=== PATIENT | female | born 1945 ===

== ENCOUNTER 2022-06-19 05:45 | Day surgery (SDC) | payer OTHER ==
[~2022-06-19] VITALS: Ht 152.4 cm; Wt 48.1 kg
[~2022-06-19 05:45] MED LIST: CLONAZEPAM0.5 MG PO; HORIZANT300 MG PO; VITAMIN C500 M6 PO
[2022-06-19] MEDS ORDERED: ULTRAM50 MG PO (12:01)
[2022-06-19] MEDS ORDERED: CEPHALEXIN500 MG PO (12:01)
== END 2022-06-19 12:10 | disposition home or self-care (01) ==
LOC: CIR.AMB 05:45
PROVIDERS: ATTEND Surgery
DX: R15.9 Full incontinence of feces (principal); K59.09 Other constipation; Z20.822 Contact with and (suspected) exposure to COVID-19
CPT/HCPCS: 64581; 95971; C1778

== ENCOUNTER 2022-07-03 05:40 | Day surgery (SDC) | payer OTHER ==
[~2022-07-03 05:40] MED LIST changes: +CEPHALEXIN500 MG PO; +ELAVIL PO; +FISH OI PO; +ULTRAM50 MG PO
[2022-07-03] MEDS ORDERED: ULTRAM50 MG PO (09:11)
== END 2022-07-03 11:10 | disposition home or self-care (01) ==
LOC: CIR.AMB 05:40
PROVIDERS: ATTEND Surgery
DX: R15.9 Full incontinence of feces (principal); Z20.822 Contact with and (suspected) exposure to COVID-19
CPT/HCPCS: 64590; 95971; L8679